=== PATIENT | female | born 1990 | race Caucasian/White ===

== ENCOUNTER 2018-02-01 21:05 | Emergency (ER) | payer MEDICAID ==
[2018-02-02 00:20] LABS: URINE BLOOD (Dip) POC Negative (NEGATIVE); URINE GLUCOSE (Dip) POC Negative (NEGATIVE); URINE KETONES (Dip) POC Negative (NEGATIVE); URINE LEUKOCYTE EST (Dip) POC 1+ (NEGATIVE); URINE NITRITE (Dip) POC Negative (NEGATIVE); URINE TOTAL PROTEIN POC Negative (NEGATIVE)
[2018-02-02] MEDS: HYDROCODONE/APAP (5/325) TAB PO (00:29)
[2018-02-02] MEDS: ONDANSETRON (ODT) 4 MG TAB ODT (00:29)
== END 2018-02-02 02:44 | disposition home or self-care (01) ==
LOC: E/R 21:05
DX: N39.0 Urinary tract infection, site not specified (principal); N83.202 Unspecified ovarian cyst, left side; E66.01 Morbid (severe) obesity due to excess calories; Z68.41 Body mass index [BMI] 40.0-44.9, adult
CPT/HCPCS: 76830; 76856; 81003; 81025; 99284-25

== ENCOUNTER 2018-11-24 20:13 | Emergency (ER) | payer MEDICAID ==
[2018-11-24] MEDS: KETOROLAC 60 MG INJ IM (22:06)
== END 2018-11-24 23:10 | disposition home or self-care (01) ==
LOC: FTE 20:13
DX: S49.92XA Unspecified injury of left shoulder and upper arm, initial encounter (principal); X58.XXXA Exposure to other specified factors, initial encounter; Y92.9 Unspecified place or not applicable
CPT/HCPCS: 73030; 81025; 96372; 99284-25